=== PATIENT | female | born 1965 | race African-American/Black ===

== ENCOUNTER 2016-12-22 22:28 | Emergency (ER) | payer MEDICAID ==
[~2016-12-22] VITALS: Ht 180.3 cm; Wt 65.8 kg
[~2016-12-22 22:28] MED LIST: ACETAMINOPHEN-1 EAC1 ORAL; ACETAMINOPHEN-1 EAC2 ORAL; BENADRYL50 MG ORAL; CYCLOBENZAPRINE10 MG ORAL; IBUPROFEN600 MG ORAL; NKM; NORCO 5-325 TA1 EACH ORAL; PREDNISONE20 MG ORAL; PROMETHAZINE-D118 ML ORAL; TESSALON PERLE100 M2 ORAL; ZITHROMAX250 MG ORAL
[2016-12-22] MEDS ORDERED: IBUPROFEN600 MG ORAL (22:49)
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
[2016-12-22 23:05] VITALS: BP 116/62
== END 2016-12-22 23:00 | disposition home or self-care (01) ==
LOC: EMR 22:50
DX: R51 Headache (principal); M54.9 Dorsalgia, unspecified; Y04.2XXA Assault by strike against or bumped into by another person, initial encounter; Y92.89 Other specified places as the place of occurrence of the external cause; Z88.6 Allergy status to analgesic agent; F17.200 Nicotine dependence, unspecified, uncomplicated
CPT/HCPCS: 99283